=== PATIENT | female | born 1990 ===

== ENCOUNTER 2022-01-30 13:30 | Inpatient (IN) | payer OTHER ==
[~2022-01-30] VITALS: Ht 160 cm; Wt 72.1 kg
== END 2022-02-16 12:11 | disposition home or self-care (01) | DRG 798 ==
LOC: OB/GYN 02-14 04:53 → LDR 02-14 04:53 → OB/GYN 02-14 17:04 → LDR 02-16 13:30
PROVIDERS: ADMIT Specialist; ATTEND Specialist
PROC: 10E0XZZ Delivery of Products of Conception, External Approach (ICD-10-PCS; principal; 2022-02-14)
PROC: 4A1HXCZ Monitoring of Products of Conception, Cardiac Rate, External Approach (ICD-10-PCS; 2022-02-14)
PROC: 0UB70ZZ Excision of Bilateral Fallopian Tubes, Open Approach (ICD-10-PCS; 2022-02-15)
DX: O80 Encounter for full-term uncomplicated delivery (principal); Z37.0 Single live birth; Z30.2 Encounter for sterilization; Z3A.39 39 weeks gestation of pregnancy; Z20.822 Contact with and (suspected) exposure to COVID-19